=== PATIENT | male | born 1945 | race Caucasian/White ===

== ENCOUNTER 2018-03-15 18:17 | Emergency (ER) | payer OTHER ==
[2018-03-15] MEDS ORDERED: LET GEL TOPICAL 1 EA SYR TP ONE ×2 (18:34→18:38)
[2018-03-15 18:38] VITALS: BP 147/82
[2018-03-15] MEDS ORDERED: TDAP ADULT 0.5 ML INJ (BOOSTRIX) IM ONE (18:56)
--- NOTE | 2018-03-15 19:39 | EDPHY ---
H & P Time Seen by Provider: 03/15/18 18:39 HPI/ROS: CHIEF COMPLAINT: Finger laceration HISTORY OF PRESENT ILLNESS: Patient states he was working on a 5th wheel trailer and was tightening a bolt when his hand slipped hitting an I-beam. He sustained a flap laceration to his right index finger over the proximal phalanges. Significant bleeding but no numbness or weakness. Unknown last tetanus. REVIEW OF SYSTEMS: Negative except per HPI. General Appearance: Alert, no distress. Eyes: Pupils equal and round no icterus Respiratory: No respiratory distress Neurological: Awake, alert, no focal deficits. Skin: Warm and dry, no rashes. Musculoskeletal: Neck is supple nontender. Right index finger with the shaped laceration dorsum of proximal phalanges. Distal sensation movement circulation intact. Extremities are symmetrical, full range of motion, no edema. Psychiatric: Patient is oriented X 3, there is no agitation. Medical/surgical history: History of appendectomy, tonsillectomy Social history: Nonsmoker. Has primary care in [place] Dr. Fieror Smoking Status: Never smoked Constitutional: Initial Vital Signs Temperature (C) 37.0 C 03/15/18 18:37 Heart Rate 75 03/15/18 18:37 Respiratory Rate 18 03/15/18 18:37 Blood Pressure 147/82 H 03/15/18 18:37 O2 Sat (%) 97 03/15/18 18:37 O2 Delivery Mode Room Air Allergies/Adverse Reactions: No Known Allergies Allergy (Verified 03/15/18 18:36) Home Medications: Medication Instructions Recorded NK [No Known Home Meds] 03/15/18 Medical Decision Making Procedures: Procedure: Laceration repair. Verbal consent was obtained from the patient. The 2.5 cm laceration on the right index finger was anesthetized in the usual fashion with digital block, 3 mils of 1% lidocaine without epi. The wound was irrigated, draped and explored to its base with a gloved finger. There were no deep structures involved. No tendon injury was identified. The wound was repaired with 4 0 Prolene. The wound repair was tolerated well, good wound approximation, 6 sutures simple interrupted.. The procedure was performed by myself. ED Course/Re-evaluation: 7:30 p.m. sutures placed Differential Diagnosis: Differential diagnosis includes but is not limited to laceration, tendon injury , foreign body. After evaluation simple laceration without deep structure involvement. Tetanus vaccination updated. Discussed wound care, signs symptoms of infection and timing for suture removal. - Data Points Medications Given: Discontinued Medications Diphtheria/Tetanus/Acell Pertussis (Boostrix) 0.5 ml IM .ONCE ONE Stop: 03/15/18 18:57 Last Admin: 03/15/18 19:07 Dose: 0.5 ml Tetracaine/Epinephrine/Lidocaine (Let Gel Topical) 1 ea TP EDNOW ONE Stop: 03/15/18 18:39 Last Admin: 03/15/18 18:43 Dose: 1 ea Departure - Departure Disposition: Home, Routine, Self-Care Clinical Impression: Laceration Condition: Good Instructions: Finger Laceration (ED) Additional Instructions: Suture removal in 12-14 days you can have that done here or see your primary care physician. Keep the wound clean, dry, use antibiotic ointment on it as discussed. Return to the emergency department for any signs of infection. Referrals: CASIMIRO FIERRO [Primary Care Provider] - As per Instructions
== END 2018-03-15 19:45 | disposition home or self-care (01) ==
LOC: CED 18:17
PROC: 0HQFXZZ Repair Right Hand Skin, External Approach (ICD-10-PCS; principal; 2018-03-15)
DX: S61.210A Laceration without foreign body of right index finger without damage to nail, initial encounter (principal); Z23 Encounter for immunization; W45.8XXA Other foreign body or object entering through skin, initial encounter; Y99.8 Other external cause status; Y93.89 Activity, other specified